=== PATIENT | male | born 1980 | race Caucasian/White ===

== ENCOUNTER 2016-12-28 16:32 | Emergency (ER) | payer MEDICAID ==
--- NOTE | 2016-12-28 17:33 | ED Physician Chart ---
Chief Complaint/HPI - Patient Information Date Seen:: 12/28/16 Time Seen:: 17:00 Chief Complaint:: painful mass left jazmine-buttocks History of Present Illness:: Patient has had a painful swollen mass of the medial left jazmine-buttocks last 4 days. He has also had chills. He did not take his temperature. Allergies:: Allergies Allergy/AdvReac Type Severity Reaction Status Date / Time No Known Allergies Allergy Verified 12/28/16 16:56 Vitals:: Vital Signs - 8 hr 12/28/16 16:40 Temp 100.2 F HR 104 RR 18 BP 119/63 O2 Sat % 97 Historian:: Patient Review:: Nurse's Note Reviewed Review of Systems - Review of Systems General/Constitutional: Chills Skin: Skin lesions Head: No headache Eyes: No loss of vision ENT: No earache Neck: No neck pain Cardio Vascular: No chest pain Pulmonary: No SOB GI: No nausea, No vomiting G/U: No dysuria Musculoskeletal: No bone or joint pain Endocrine: No polyuria Psychiatric: No prior psych history, No depression Hematopoietic: No bruising Allergic/Immuno: No urticaria, No angioedema Neurological: No syncope, No headache, No seizure Past Medical History - Past Medical History Past Medical History: No significant medical hx Family History: None Social History: Smoker, No Alcohol Surgical History: None Psychiatricy History: None Medication: None Family Medical History - Family Member Mother History Unknown: Yes Physical Exam - Physical Examination General/Constitutional: Well-developed, well-nourished, Alert, No distress Head: Atraumatic Eyes: Lids, conjuctiva normal, PERRL Other Skin comments:: 10 cm redness, swelling fluctuance and induration medial left jazmine-buttocks. Several about 1 cm in diameter crusts noted on the buttocks. ENMT: External ears, nose nl Neck: No nuchal rigidity Respiratory: Nl effort/Exclusion, Clear to Auscultation, No Wheeze/Rhonchi/Rales Cardio Vascular: RRR GI: No tenderness/rebounding/guarding : No CVA tenderness Extremities: No tenderness or effusion, No edema Neuro/Psych: Alert/oriented Assessment - Assessment General Assessment: Abscess and crusts noted probably secondary to MRSA - Procedures Procedures:: Skin cleansed with Betadine solution over area of maximum fluctuance abscess left jazmine-buttocks. 1% Xylocaine about 8 mL's used for local anesthesia. 1 cm incision made with a #10 scalpel. Copious pus came out. Abscess cavity was irrigated with normal saline and probed gently with a curved hemostat to break up any loculations. Abscess cavity was packed loosely with 1/2 inch nu-gauze ED Septic Shock - . Is Septic Shock (SBP<90, OR Lactate>4 mmol\L) present?: No - <6hrs of presentation: Vital Signs: Vital Signs - 8 hr 12/28/16 16:40 Temp 100.2 F HR 104 RR 18 BP 119/63 O2 Sat % 97 Reassessment (Disposition) - Reassessment Reassessment:: Packing to be removed in 1-2 days Reassessment Condition:: Improved - Diagnosis Diagnosis:: Abscess left jazmine-buttocks - Aftercare/Follow up Instructions Aftercare/Follow-Up Instructions:: Refer to Discharge Instructions Medication Prescribed:: Bactrim DS No. 20 to take one twice a day - Patient Disposition Discharge/Transfer:: Home Condition at Disposition:: Stable, Improved
[2016-12-28] MEDS ORDERED: [UNRECOGNIZED DRUG - OTHER] IM ONE (17:39)
[2016-12-28] MEDS ORDERED: Sulfamethoxazole/TMP 800/160mg Tab PO ONE (17:40)
[2016-12-28] MEDS ORDERED: Sulfamethoxazole/TMP 800/160mg Tab ONE (17:49)
== END 2016-12-28 18:15 | disposition left against medical advice (07) ==
LOC: ER 16:32
DX: L02.31 Cutaneous abscess of buttock (principal); F17.200 Nicotine dependence, unspecified, uncomplicated
CPT/HCPCS: 10060; A4217; Z7502; Z7610

== ENCOUNTER 2019-01-29 19:51 | Emergency (ER) | payer MEDICAID ==
--- NOTE | 2019-01-29 20:38 | ED Physician Chart ---
ED Chief Complaint/HPI - Patient Information Date Seen:: 01/29/19 Time Seen:: 20:30 Chief Complaint:: penile lesions History of Present Illness:: 38 yr old male with penile lesions no nv or constipation or diarhea Allergies:: Allergies Allergy/AdvReac Type Severity Reaction Status Date / Time No Known Allergies Allergy Verified 12/28/16 16:56 Vitals:: Vital Signs - 8 hr 01/29/19 19:59 Temp 99.1 F HR 91 RR 18 BP 135/97 O2 Sat % 98 ED Review of Systems - Review of Systems General/Constitutional: No fever, No chills, No weight loss, No weakness, No diaphoresis, No edema, No loss of appetite Skin: No skin lesions, No rash, No bruising Head: No headache, No light-headedness Eyes: No loss of vision, No pain, No diplopia ENT: No earache, No nasal drainage, No sore throat, No tinnitus Neck: No neck pain, No swelling, No thyromegaly, No stiffness, No mass noted Cardio Vascular: No chest pain, No palpitations, No PND, No orthopnea, No edema Pulmonary: No SOB, No cough, No sputum, No wheezing GI: No nausea, No vomiting, No diarrhea, No pain, No melena, No hematochezia, No constipation, No hematemesis G/U: Other (penile lesions) Musculoskeletal: No bone or joint pain, No back pain, No muscle pain Endocrine: No polyuria, No polydipsia Psychiatric: No prior psych history, No depression, No anxiety, No suicidal ideation Hematopoietic: No bruising, No lymphadenopathy Allergic/Immuno: No urticaria, No angioedema Neurological: No syncope, No focal symptoms, No weakness, No paresthesia, No headache, No seizure, No dizziness, No confusion, No vertigo ED Past Medical History - Past Medical History Past Medical History: No significant medical hx, Other (homeless) Family Medical History - Family Member Mother History Unknown: Yes ED Physical Exam - Physical Examination General/Constitutional: Awake, Well-developed, well-nourished, Alert, No distress, GCS 15, Non-toxic appearing, Ambulatory Head: Atraumatic Eyes: Lids, conjuctiva normal, PERRL, EOMI Skin: No ecchymosis, Well hydrated, No lymphadenopathy ENMT: External ears, nose nl, Nasal exam nl, Lips, teeth, gums nl Neck: Nontender, Full ROM w/o pain, No JVD, No nuchal rigidity, No bruit, No mass, No stridor Respiratory: Nl effort/Exclusion, Clear to Auscultation, No Wheeze/Rhonchi/Rales Cardio Vascular: RRR, No murmur, gallop, rubs, NL S1 S2 GI: No tenderness/rebounding/guarding, No organomegaly, No hernia, Normal BS's, Nondistended, No mass/bruits, No McBurney tenderness : No CVA tenderness Extremities: No tenderness or effusion, Full ROM, normal strength in all extremities, No edema, Normal digits & nails Neuro/Psych: Alert/oriented, DTR's symmetric, Normal sensory exam, Normal motor strength, Judgement/insight normal, Mood normal, Normal gait, No focal deficits Misc: Normal back, No paraspinal tenderness ED Assessment - Assessment General Assessment: perianal sores lesions abrasions Prep/Irrigation:: wound cleaned with peroxide and given rocephin one gm im azithromycin one gm po ED Septic Shock - . Is Septic Shock (SBP<90, OR Lactate>4 mmol\L) present?: No - <6hrs of presentation: Vital Signs: Vital Signs - 8 hr 01/29/19 19:59 Temp 99.1 F HR 91 RR 18 BP 135/97 O2 Sat % 98 ED Reassessment (Disposition) - Reassessment Reassessment:: perianal lesions - Diagnosis Diagnosis:: as above - Aftercare/Follow up Instructions Medication Prescribed:: doxy keflex - Patient Disposition Discharge/Transfer:: Home Condition at Disposition:: Stable
[2019-01-29 20:59] LABS: % EOSINOPHILS 2.8 % (0.0-5.0); % LYMPHOCYTES 21.6 % (20.0-50.0); % MONOCYTES 1.7 % (2.0-10.0); % NEUTROPHILS 73.9 % (40.0-80.0); EOSINOPHILE ABSOLUTE 0.2 Th/cmm (0.1-0.4); HEMATOCRIT 42.4 % (41.0-60); HEMOGLOBIN 14.2 gm/dL (12-16); LYMPHOCYTE ABSOLUTE 1.5 Th/cmm (1.5-3.0); MEAN CELL VOLUME 83.8 fl (80-99); MEAN CORPUSCULAR HEMOGLOBIN 28.2 pg (26.0-30.0); MEAN CORPUSCULAR HGB CONC 33.6 pg (28.0-36.0); MEAN PLATELET VOLUME 7.4 fl; MONOCYTE ABSOLUTE 0.1 Th/cmm (0.3-1.0); NEUTROPHILE ABSOLUTE 5.2 Th/cmm (1.8-8.0); PLATELET COUNT 326 Th/cmm (150-400); RED BLOOD COUNT 5.06 Mil/cmm (4.30-5.70); RED CELL DISTRIBUTION WIDTH 12.8 % (11.5-20.0)
[2019-01-29 21:13] LABS: ALB/GLOB RATIO 1.3 (1.0-1.8); ALBUMIN 4.2 gm/dL (4.2-5.5); ALKALINE PHOSPHATASE 109 U/L (34-104); ANION GAP 10.8 (7.0-16.0); BILIRUBIN,TOTAL 0.5 mg/dL (0.3-1.0); BUN - UREA NITROGEN 14 mg/dL (7-25); CALCIUM SERUM 9.8 mg/dL (8.6-10.3); CARBON DIOXIDE 29.6 mEq/L (21.0-31.0); CHLORIDE 100 mEq/L (98-107); CREATININE - SERUM 0.8 mg/dL (0.7-1.3); GFR AFRICAN-AMERICAN > 60.0 ml/min (>90); GFR NON AFRICAN-AMERICAN > 60.0 ml/min; GLUCOSE 114 mg/dL (70-105); POTASSIUM SERUM 3.4 mEq/L (3.5-5.1); SGOT 16 U/L (13-39); SGPT/ALT 17 U/L (7-52); SODIUM SERUM 137 mEq/L (136-145); TOTAL PROTEIN,SERUM 7.5 gm/dL (6.0-8.3)
[2019-01-29 21:44] LABS: URINE SOURCE CLEAN C
[2019-01-29 21:48] LABS: URINE BILIRUBIN NEGATIVE (NEGATIVE); URINE BLOOD NEGATIVE (NEGATIVE); URINE GLUCOSE (UA) NEGATIVE (NEGATIVE); URINE KETONE NEGATIVE (NEGATIVE); URINE LEUKOCYTE ESTERASE TRACE (NEGATIVE); URINE MICROSCOPIC INDICATED? YES; URINE NITRATE NEGATIVE (NEGATIVE); URINE PH 6.5 (4.6 - 8.0); URINE PROTEIN NEGATIVE (NEGATIVE); URINE UROBILINOGEN 0.2 E.U./dL (0.2 - 1.0)
[2019-01-29 21:49] LABS: URINE CLARITY CLEAR (CLEAR); URINE COLOR YELLOW
[2019-01-29 21:55] LABS: URINE BACTERIA 1+ /hpf (NONE SEEN); URINE EPITHELIAL CELLS MODERATE /lpf (FEW); URINE RBC 0-2 /hpf (0-5)
[2019-01-29] MEDS ORDERED: Potassium Chloride 20 mEq ER Tab PO ONE (21:56)
[2019-01-29] MEDS: Potassium Chloride 20 mEq ER Tab PO ONE (21:58)
== END 2019-01-29 22:06 | disposition home or self-care (01) ==
LOC: ER 19:51
DX: N48.89 Other specified disorders of penis (principal); Z59.0 Homelessness
CPT/HCPCS: 99283; 87491; 86592; 96372; 36415; 85025; 81001; 80053; J0696; 86593-TC; 86780-90; Z7502